=== PATIENT | female | born 2000 | race Two or more races ===

== ENCOUNTER 2018-11-04 05:21 | Emergency (ER) | payer MEDICAID, OTHER ==
[~2018-11-04] VITALS: Ht 162.6 cm; Wt 70.5 kg
[2018-11-04 05:59] VITALS: BP 128/71
[2018-11-04] MEDS ORDERED: HYDROGEN PEROXIDE 118 ML SOLUTION ONE (06:16)
[2018-11-04] MEDS ORDERED: IBUPROFEN 800 MG TABLET PO ONE (06:30)
== END 2018-11-04 06:47 | disposition home or self-care (01) ==
LOC: EMS 05:27
DX: T16.1XXA Foreign body in right ear, initial encounter (principal); H61.21 Impacted cerumen, right ear; H60.91 Unspecified otitis externa, right ear; R03.0 Elevated blood-pressure reading, without diagnosis of hypertension; X58.XXXA Exposure to other specified factors, initial encounter; Y93.89 Activity, other specified; Y92.89 Other specified places as the place of occurrence of the external cause; Y99.8 Other external cause status
CPT/HCPCS: 69209